=== PATIENT | male | born 2000 | race Two or more races ===

== ENCOUNTER 2024-10-25 01:03 | Emergency (ER) | payer MEDICAID, SELFPAY ==
[2024-10-25 01:04] VITALS: BMI 36.9
[2024-10-25 01:16] VITALS: BP 142/93; PULSE 68; RESP 19; TEMP 36.7; O2SAT 97
--- NOTE | 2024-10-25 01:16 | EDNOTE_ITS ---
ED Allergic Reaction RME/HPI General Chief complaint: Allergic Reaction Stated complaint: STUNG BY BEE, ALLERGY TO BEES Time Seen by Provider: 10/25/24 01:36 Arrival date/time: 10/25/24 01:03 RME / HPI RME / HPI narrative: Dr. Carranza Template (10/25/24) This section includes all my notes and documentations, including HPI, PE, and ED course. Naveed Carranza MD HPI: 24 y/o male presents to ED c/o facial swelling s/p bee sting to the right upper chest area x 30 minutes ago. Patient has known allergy to bee venom, but does not have an Epi Pen. Feels short of breath. With throat tightness. No other complaints. ROS: All negative except as documented in HPI. Physical Exam: General: Alert and oriented. No acute distress when remaining still. Eyes: Conjunctivae and lids clear. ENT: No nasal congestion. Pharynx normal. TM normal bilaterally. Patent airway. No signs of angioedema. Neck: Supple. Heart: RRR. Lungs: No respiratory distress. Good air movement. No rhonchi, wheezing, rales. Abdomen: Soft and nontender. Skin: Warm and dry. Neuro: Alert and oriented X 3. At this point, diagnoses include: Bee Sting Reaction. Treatment here included: IV fluid, Albuterol/Ipratroprium Duoneb, Benadryl, Pepcid, Methylprednisolone. Significant improvement noted. Prescribed EpiPen and prednisone and recommended outpatient management. Based on my best medical judgment, made decision no further evaluation or treatment indicated at this time. Patient understands and agrees to the discharge instructions customized and printed, see below. Discharge instructions from Dr. Carranza: 1. After evaluation, you were treated for bee sting allergic reaction. 2. Take prednisone as prescribed.? And Benadryl 50 mg every 6 hours today then as needed.? And increase oral fluid and maintain clear urine to flush the allergens out of your system.? If dark or yellow, increase oral fluid. 3. EpiPen as needed. 4. Seek immediate medical care with breathing difficulty, throat tightness, or with any concerns. Naveed Carranza MD Related Data Previous Rx's ?Medication ?Instructions ?Recorded ibuprofen 600 mg tablet 600 mg PO QID PRN pain #30 t abs 03/02/20 epinephrine 0.3 mg/0.3 mL 0.3 ml subcut .once PRN 06/20 injection, auto-injector (EpiPen) hypersensitivity woo ction #2 ea prednisone 20 mg tablet 40 mg PO BID 2 days #8 tabs 10/25/24 Allergies Allergy/AdvReac Type Severity Reaction Status Date / Time bee venom protein (honey bee) Allergy Severe Anaphylaxis Verified 10/25/24 01:03 Review of Systems Review of Systems Systems Reviewed: All systems reviewed, normal except as documented Past Medical History Social History SMOKING STATUS: Never smoker ED Exam Narrative Physical exam: Refer to HPI above Course Quality Measures none Orders Category Date Time Status Saline [Insert IV] NOW Care 10/25/24 01:14 Active Albuterol/Ipratr Rt Vangie [Duoneb Rt Vangie] Med 10/25/24 01:14 Discontinued 3 ml INH X1 ONE DiphenhydrAMINE INJ [Benadryl Inj] Med 10/25/24 01:14 Discontinued 50 mg IVP X1 STA Famotidine [Pepcid] Med 10/25/24 01:14 Discontinued 40 mg PO X1 ONE MethylPREDNISolone.* [SoluMEDROL Inj] Med 10/25/24 01:14 Discontinued 125 mg IVP X1 ONE Sodium Chloride 0.9% 1000 ml [Ns] 1,000 ml Med 10/25/24 01:14 Discontinued IV 999 mls/hr Vital Signs Vital signs: Vital Signs Temperature 98.1 F 10/25/24 01:16 Pulse Rate 68 10/25/24 01:16 Respiratory Rate 19 10/25/24 01:16 Blood Pressure 142/93 H 10/25/24 01:16 Pulse Oximetry (%) 97 10/25/24 01:16 Oxygen Delivery Method Room Air 10/25/24 01:16 Allergic Reaction MDM Narrative MDM Narrative:: Scribe Attestation: IMarsha am scribing for and in the presence of Dr. Carranza. Provider Notation: Although this document has been carefully reviewed, there may still be some phonetic and other typographical errors.? These errors are purely grammatical due to imperfections in the software program and should not be construed in any way to? compromise the substance of the patient's medical care during this visit. 24 y/o male presents to ED c/o facial swelling s/p bee sting to the left upper chest area x few hours. Patient has a known allergy to bee venom, but does not have an Epi Pen. No other complaints. Patient data External records reviewed:: [facility] previous records (Reviewed prior ED records from 10/16/23. Patient was seen for Encounter for removal of sutures.) Clinical information provided by:: patient Social determinants that could affect healthcare access:: none Patient has the following chronic illnesses:: None reported How is presenting disease/condition affected by chronic disease/condition?: no chronic disease Evaluation data The following diagnostics were reviewed and interpreted by me:: other (specify) (N/A) Lab and/or radiology exams considered but not ordered:: None Interpretation Summary: No diagnostics ordered. Medications / Prescriptions Medications or Prescriptions considered but not ordered:: None Medication administrations:: Medication Administration History Discontinued Medications Albuterol/Ipratropium (Albuterol/Ipratropium (Duoneb) Rt Vangie 3 Ml Nebu) 3 ml INH X1 ONE Stop: 10/25/24 01:15 Last Admin: 10/25/24 01:37 Dose: 3 ml Documented By: DM Diphenhydramine HCl (Diphenhydramine Inj 50 Mg/Ml Vial) 50 mg IVP X1 STA Stop: 10/25/24 01:15 Last Admin: 10/25/24 01:33 Dose: 50 mg Documented By: CVL Famotidine (Famotidine 20 Mg Tablet) 40 mg PO X1 ONE Stop: 10/25/24 01:15 Last Admin: 10/25/24 01:33 Dose: 40 mg Documented By: CVL Sodium Chloride (Ns) 1,000 mls @ 999 mls/hr IV .Q1H1M ONE Stop: 10/25/24 02:14 Last Admin: 10/25/24 01:37 Dose: 999 mls/hr Documented By: CVL Methylprednisolone Sodium Succinate (Methylprednisolone Sod Succ 62.5 Mg/Ml 2ml Vial) 125 mg IVP X1 ONE Stop: 10/25/24 01:15 Last Admin: 10/25/24 01:36 Dose: 125 mg Documented By: CVL IV fluid, Albuterol/Ipratroprium Duoneb, Benadryl, Pepcid, Methylprednisolone. Consultations Consultation(s) initiated? (list below): No Diagnosis Differential Diagnosis allergic reaction: anaphylaxis, allergic reaction, angioedema, contact dermatitis, adverse reaction to drug, viral enanthem and urticaria Most likely diagnosis given after review of the tests above:: Bee Sting Reaction Admission Indicated Admission indicated?: not indicated Explain why admission is indicated or not indicated:: With significant improvement, there was no indication for admission. Admission Request Was there a request for admission?: No Disposition Plan Disposition Plan: Discharge Discharge Attestation Discharge Attestation: The patient and all family members were given an opportunity to ask questions and understood the discharge instructions. Discharge instructions specifically effects, indications for sooner follow up or return to the emergency department, and the expected course of current diagnosis. Patient condition: Stable Discharge Plan Plan Patient Disposition: HOME (Self Care) Prescriptions/Referrals Prescriptions/Med Rec: New prednisone 20 mg tablet 40 mg PO BID 2 Days Qty: 8 0RF Taper: Prednisone Taper 20 mg DAILY for 2 Days and 0 Hour 10 mg DAILY for 2 Days and 0 Hour 5 mg DAILY for 7 Days and 0 Hour epinephrine [EpiPen] 0.3 mg/0.3 mL auto-injector 0.3 ml subcut .once PRN (Reason: hypersensitivity reaction) Qty: 2 0RF No Action ibuprofen 600 mg tablet 600 mg PO QID PRN (Reason: pain) Qty: 30 0RF Referrals: No Primary/Family,Physician [Primary Care Provider] - In 1 week Problem List Clinical Impression: Bee sting reaction Patient/Caregiver Discharge Instructions Discharge Activity: activity as tolerated Education Materials: ED BEE STING General Allergic Rxn Additional Instructions: Discharge instructions from Dr. Carranza: 1. After evaluation, you were treated for bee sting allergic reaction. 2. Take prednisone as prescribed.? And Benadryl 50 mg every 6 hours today then as needed.? And increase oral fluid and maintain clear urine to flush the allergens out of your system.? If dark or yellow, increase oral fluid. 3. EpiPen as needed. 4. Seek immediate medical care with breathing difficulty, throat tightness, or with any concerns. Print Language: Danish Stand Alone Forms: [facility] Award Info., Patient Portal Info Letter
[2024-10-25] MEDS: FAMOTIDINE 20 MG TABLET 40 MG PO (01:33)
[2024-10-25] MEDS: DiphenhydrAMINE INJ 50 MG/ML VIAL IVP (01:33)
[2024-10-25] MEDS: MethylPREDNISolone SOD SUCC 62.5 MG/ML 2ML VIAL 125 MG IVP (01:36)
[2024-10-25] MEDS: SODIUM CHLORIDE 0.9% 1000 ML 1,000 ML 999 ML IV (01:37)
[2024-10-25] MEDS: ALBUTEROL/IPRATROPIUM (Duoneb) RT SOL 3 ML NEBU INH (01:37)
[2024-10-25 01:38] VITALS: PULSE 66; RESP 18; O2SAT 100
[2024-10-25 02:20] VITALS: BP 125/82; PULSE 65; RESP 18; O2SAT 94
[2024-10-25 02:55] VITALS: BP 138/81; PULSE 67; RESP 18; O2SAT 98
== END 2024-10-25 02:57 | disposition home or self-care (01) ==
PROVIDERS: Emergency Provider Emergency Medicine
DX: T63.441A Toxic effect of venom of bees, accidental (unintentional), initial encounter (principal); R22.0 Localized swelling, mass and lump, head; R06.02 Shortness of breath
CPT/HCPCS: 94640; 96361; 96374; 96375; 99284; A9270; J1200; J2919; J7030